=== PATIENT | male | born 1960 | race Caucasian/White ===

== ENCOUNTER 2021-03-04 20:12 | Emergency (ER) | payer BC ==
[~2021-03-04] VITALS: Ht 177.8 cm; Wt 90.7 kg
[2021-03-04] MEDS ORDERED: ZOFRAN ODT4 MG PO (21:49)
[2021-03-04] MEDS ORDERED: VENTOLIN HFA 1818 GM INH (21:49)
[2021-03-04] MEDS ORDERED: FLEXERIL PO (21:49)
[2021-03-04 21:54] VITALS: BP 134/86
== END 2021-03-04 21:54 | disposition home or self-care (01) ==
LOC: M.ERS 20:12
DX: U07.1 COVID-19 (principal)